=== PATIENT | male | born 1960 | race African-American/Black ===

== ENCOUNTER 2016-09-21 07:47 | Emergency (ER) | payer MEDICARE, MEDICAID ==
[~2016-09-21] VITALS: Ht 200.7 cm; Wt 114.0 kg
[2016-09-21 08:10] VITALS: BP 132/82
== END 2016-09-21 08:37 | disposition home or self-care (01) ==
LOC: ER 08:18
DX: M25.552 Pain in left hip (principal); G89.29 Other chronic pain; J44.9 Chronic obstructive pulmonary disease, unspecified; J45.909 Unspecified asthma, uncomplicated; E11.9 Type 2 diabetes mellitus without complications; M41.9 Scoliosis, unspecified; Z86.711 Personal history of pulmonary embolism; M16.12 Unilateral primary osteoarthritis, left hip
CPT/HCPCS: 99281